=== PATIENT | female | born 1935 | race Two or more races ===

== ENCOUNTER 2020-10-10 02:39 | Inpatient (IN) | payer MEDICAID ==
[~2020-10-10] VITALS: Ht 160 cm; Wt 71.0 kg
[~2020-10-10 02:39] MED LIST: ALBU18 IN; ALEN1TAB32 PO; AMLO5CAP PO; BECL0.07 IN; GABA300T3 PO; HYDR25TA4 PO; METF-916 PO; OMEP20TA44 PO; OYST500T48 OR; RANI-226 PO; TAM150SU PO
[2020-10-10] MEDS ORDERED: SODIUM CHLORIDE 0.9% 1,000 ML IVB ONE (03:15)
[2020-10-10 04:36] LABS: Basophils # (auto) 0 10 ^3/uL (0-0.2); Basophils % (auto) 0.3 % (0.0-2.0); Eosinophils # (auto) 0.1 10 ^3/uL (0-0.8); Hematocrit 38.4 % (36.0-46.0); Hemoglobin 12.3 g/dL (12.2-16.2); Lymphocytes # (auto) 1.2 10 ^3/uL (0.4-5.4); Lymphocytes % (auto) 12.2 % (10.0-50.0); Mean Corpuscular Hemoglobin 29.2 pg (28.0-32.0); Mean Corpuscular Volume 91.3 fL (80.0-100.0); Monocytes # (auto) 0.6 10 ^3/uL (0-1.3); Monocytes % (auto) 6.6 % (0.0-12.0); Neutrophils # (auto) 7.6 10 ^3/uL (1.6-8.6); Neutrophils % (auto) 79.9 % (37.0-80.0); Platelet Count (auto) 153 10^3/uL (140-450); Red Cell Distribution Width 13.8 % (11.8-14.3); White Blood Cell 9.5 10^3/uL (4.4-10.8)
[2020-10-10 04:52] LABS: Urine Bacteria NONE SEEN /hpf (None Seen); Urine Blood TRACE /uL (Negative); Urine Hyaline Cast MOD /lpf (0 - 2); Urine Mucus FEW (None Seen); Urine Specific Gravity 1.019 (1.001-1.035); Urine WBC 45 /hpf (0 - 5)
[2020-10-10 04:54] LABS: Calcium 8.6 mg/dL (8.5-10.1); Potassium 4.2 mmol/L (3.5-5.1)
[2020-10-10 05:00] LABS: Albumin 3.5 g/dL (3.4-5.0); Bilirubin, Total 0.4 mg/dL (0.2-1.0); Total Protein 6.6 g/dL (6.4-8.2)
[2020-10-10] MEDS ORDERED: PANTOPRAZOLE 40 MG TAB PO ONE (05:00)
[2020-10-10] MEDS ORDERED: ONDANSETRON ODT 4 MG TAB PO ONE (05:00)
[2020-10-10] MEDS ORDERED: NITROGLYCERIN 0.4 MG SL TAB SL PRN (07:45)
[2020-10-10] MEDS ORDERED: ONDANSETRON HCL 4 MG/2 ML VIAL IV PRN (07:45)
[2020-10-10] MEDS: SODIUM CHLORIDE 0.9% 1,000 ML IV SCH ×2 (07:45→11:37)
[2020-10-10] MEDS ORDERED: DOCUSATE SOD 100 MG CAP PO PRN (07:45)
[2020-10-10] MEDS ORDERED: ACETAMINOPHEN 325 MG TAB PO PRN (07:45)
[2020-10-10] MEDS ORDERED: MORPHINE SULF INJ 2 MG/ML SYRINGE 1ML IV PRN (07:45)
[2020-10-10] MEDS ORDERED: HYDROcodone-ACET 5/325MG TAB PO PRN (07:45)
[2020-10-10 09:42] LABS: Cholesterol 197 mg/dL (< 200); HDL Cholesterol 52 mg/dL (40-59); LDL Cholesterol 112 mg/dL (< 100); Triglycerides 261 mg/dL (< 150)
[2020-10-10] MEDS: PANTOPRAZOLE 40 MG/10 ML VIAL INJ IV SCH (10:10)
[2020-10-10] MEDS: ENOXAPARIN SOD 40 MG/0.4 ML SYRINGE SC SCH (10:10)
[2020-10-10 11:30] VITALS: BP 110/76
[2020-10-10] MEDS ORDERED: DEXTROSE (50%) 50ML SYRG IV PRN (13:15)
[2020-10-10 14:30] VITALS: BP 107/63
[2020-10-10] MEDS ORDERED: GASTROGRAFIN 120 ML SOL ONE (15:40)
[2020-10-10] MEDS: InsuLIN REG 1unit/0.01ml Soln (100units/ml) SC SCH (17:29)
[2020-10-10] MEDS: ACCU-CHEK COMFORT CURVE STRIP VI SCH (17:30)
[2020-10-10 21:30] VITALS: BP 125/44
[2020-10-11] MEDS: ACCU-CHEK COMFORT CURVE STRIP VI SCH ×5 (00:11→23:43)
[2020-10-11] MEDS ORDERED: INFLUENZA QUAD 2020-2021 0.5 ML SYRG IM ONE (00:15)
[2020-10-11 05:34] LABS: Basophils # (auto) 0 10 ^3/uL (0-0.2); Basophils % (auto) 0.3 % (0.0-2.0); Eosinophils # (auto) 0.1 10 ^3/uL (0-0.8); Eosinophils % (auto) 1.2 % (0.0-7.0); Hematocrit 36.4 % (36.0-46.0); Hemoglobin 11.5 g/dL (12.2-16.2); Lymphocytes # (auto) 1.6 10 ^3/uL (0.4-5.4); Lymphocytes % (auto) 22.2 % (10.0-50.0); Mean Corpuscular Hemoglobin 29.2 pg (28.0-32.0); Mean Corpuscular Hgb Conc. 31.6 g/dL (32.0-36.0); Mean Corpuscular Volume 92.6 fL (80.0-100.0); Monocytes # (auto) 0.6 10 ^3/uL (0-1.3); Monocytes % (auto) 8.4 % (0.0-12.0); Neutrophils # (auto) 4.9 10 ^3/uL (1.6-8.6); Neutrophils % (auto) 67.9 % (37.0-80.0); Platelet Count (auto) 133 10^3/uL (140-450); Red Blood Cells 3.93 10^6/uL (4.0-5.20); Red Cell Distribution Width 14.3 % (11.8-14.3); White Blood Cell 7.2 10^3/uL (4.4-10.8)
[2020-10-11 05:35] VITALS: BP 155/70
[2020-10-11] MEDS: InsuLIN REG 1unit/0.01ml Soln (100units/ml) SC SCH ×5 (05:42→23:42)
[2020-10-11 05:52] LABS: Potassium 4.3 mmol/L (3.5-5.1)
[2020-10-11 05:58] LABS: BUN/Creatinine Ratio 25.9; Calcium 8.2 mg/dL (8.5-10.1)
[2020-10-11 06:45] VITALS: BP 127/66
[2020-10-11 09:07] VITALS: BP 135/59
[2020-10-11] MEDS: PANTOPRAZOLE 40 MG/10 ML VIAL INJ IV SCH (09:31)
[2020-10-11] MEDS: MORPHINE SULFATE 4 MG/ML SYR/VIAL IV PRN ×2 (09:31→19:56)
[2020-10-11] MEDS: ENOXAPARIN SOD 40 MG/0.4 ML SYRINGE SC SCH (09:33)
[2020-10-11 12:18] VITALS: BP 137/52
[2020-10-11 16:18] VITALS: BP 154/86
[2020-10-11] MEDS: SODIUM CHLORIDE 0.9% 1,000 ML IV SCH (17:05)
[2020-10-11] MEDS ORDERED: levoFLOXacin 750MG 150 ML IV ONE (20:30)
[2020-10-11 22:00] VITALS: BP 132/52
[2020-10-12 05:00] VITALS: BP 137/59
[2020-10-12] MEDS: InsuLIN REG 1unit/0.01ml Soln (100units/ml) SC SCH ×4 (05:20→23:29)
[2020-10-12] MEDS: ACCU-CHEK COMFORT CURVE STRIP VI SCH ×4 (05:21→23:29)
[2020-10-12 06:30] LABS: Basophils # (auto) 0 10 ^3/uL (0-0.2); Basophils % (auto) 0.3 % (0.0-2.0); Eosinophils # (auto) 0 10 ^3/uL (0-0.8); Eosinophils % (auto) 0.6 % (0.0-7.0); Hemoglobin 11.1 g/dL (12.2-16.2); Lymphocytes % (auto) 15.8 % (10.0-50.0); Mean Corpuscular Hemoglobin 29.8 pg (28.0-32.0); Mean Corpuscular Hgb Conc. 31.6 g/dL (32.0-36.0); Mean Corpuscular Volume 94.3 fL (80.0-100.0); Monocytes # (auto) 0.3 10 ^3/uL (0-1.3); Monocytes % (auto) 5.3 % (0.0-12.0); Neutrophils # (auto) 4.8 10 ^3/uL (1.6-8.6); Nucleated Red Blood Cells % 0.1 %; Platelet Count (auto) 120 10^3/uL (140-450); Red Blood Cells 3.71 10^6/uL (4.0-5.20); White Blood Cell 6.2 10^3/uL (4.4-10.8)
[2020-10-12 06:46] LABS: Potassium 4.5 mmol/L (3.5-5.1)
[2020-10-12 07:13] LABS: BUN/Creatinine Ratio 35.8; Calcium 8.3 mg/dL (8.5-10.1)
[2020-10-12] MEDS: PANTOPRAZOLE 40 MG/10 ML VIAL INJ IV SCH (08:42)
[2020-10-12] MEDS: ENOXAPARIN SOD 40 MG/0.4 ML SYRINGE SC SCH (08:42)
[2020-10-12 08:43] VITALS: BP 142/67
[2020-10-12] MEDS: SODIUM CHLORIDE 0.9% 1,000 ML IV SCH (09:45)
[2020-10-12 13:00] VITALS: BP 139/57
[2020-10-12] MEDS ORDERED: BENA40TA7 PO (15:26)
[2020-10-12] MEDS ORDERED: ESCI10TA PO (15:26)
[2020-10-12] MEDS ORDERED: AMBR10TA4 PO (15:26)
[2020-10-12] MEDS ORDERED: RIOC1TAB7 PO (15:26)
[2020-10-12] MEDS ORDERED: FURO20TA3 PO (15:26)
[2020-10-12 16:30] VITALS: BP 161/72
[2020-10-12 22:00] VITALS: BP 162/85
[2020-10-13] MEDS: SODIUM CHLORIDE 0.9% 1,000 ML IV SCH (02:25)
[2020-10-13 05:00] VITALS: BP 156/104
[2020-10-13] MEDS: ACCU-CHEK COMFORT CURVE STRIP VI SCH ×2 (06:00→12:19)
[2020-10-13] MEDS: InsuLIN REG 1unit/0.01ml Soln (100units/ml) SC SCH ×2 (06:00→12:00)
[2020-10-13 06:24] LABS: Basophils # (auto) 0 10 ^3/uL (0-0.2); Basophils % (auto) 0.3 % (0.0-2.0); Eosinophils # (auto) 0 10 ^3/uL (0-0.8); Eosinophils % (auto) 0.7 % (0.0-7.0); Hemoglobin 11.4 g/dL (12.2-16.2); Lymphocytes # (auto) 1.2 10 ^3/uL (0.4-5.4); Lymphocytes % (auto) 16.7 % (10.0-50.0); Mean Corpuscular Hemoglobin 29.9 pg (28.0-32.0); Mean Corpuscular Hgb Conc. 32.6 g/dL (32.0-36.0); Mean Corpuscular Volume 91.5 fL (80.0-100.0); Monocytes # (auto) 0.6 10 ^3/uL (0-1.3); Neutrophils # (auto) 5.3 10 ^3/uL (1.6-8.6); Neutrophils % (auto) 74.3 % (37.0-80.0); Nucleated Red Blood Cells % 0.1 %; Platelet Count (auto) 128 10^3/uL (140-450); Red Blood Cells 3.83 10^6/uL (4.0-5.20); Red Cell Distribution Width 13.5 % (11.8-14.3); White Blood Cell 7.1 10^3/uL (4.4-10.8)
[2020-10-13 09:00] VITALS: BP 161/81
[2020-10-13] MEDS ORDERED: hydrALAZINE HCL 20 MG/ML VL IV PRN (09:15)
[2020-10-13] MEDS: PANTOPRAZOLE 40 MG/10 ML VIAL INJ IV SCH (10:31)
[2020-10-13] MEDS: ENOXAPARIN SOD 40 MG/0.4 ML SYRINGE SC SCH (10:31)
[2020-10-13 12:49] VITALS: BP 151/74
[2020-10-13] MEDS ORDERED: SENN-58 PO (13:30)
[2020-10-13 13:51] VITALS: BP 151/74
[2020-10-13] MEDS ORDERED: INFLUENZA QUAD 2020-2021 0.5 ML SYRG IM ONE (14:02)
[2020-10-13] MEDS ORDERED: levoFLOXacin 500MG 100 ML IV SCH (21:00)
== END 2020-10-13 15:00 | disposition home or self-care (01) | DRG 247 ==
LOC: ER 02:39 → EDBD 02:39 → TELE 02:40 → ER 10:51 → TELE-CENTR 15:32
PROVIDERS: ADMIT Nurse Practitioner Family; ATTEND Internal Medicine Pulmonary Disease
DX: K56.600 Partial intestinal obstruction, unspecified as to cause (principal); K55.9 Vascular disorder of intestine, unspecified; N17.9 Acute kidney failure, unspecified; R18.8 Other ascites; E11.22 Type 2 diabetes mellitus with diabetic chronic kidney disease; K44.9 Diaphragmatic hernia without obstruction or gangrene; M19.90 Unspecified osteoarthritis, unspecified site; E78.5 Hyperlipidemia, unspecified; I70.0 Atherosclerosis of aorta; K21.9 Gastro-esophageal reflux disease without esophagitis; J45.909 Unspecified asthma, uncomplicated; J98.11 Atelectasis; K40.90 Unilateral inguinal hernia, without obstruction or gangrene, not specified as recurrent; M51.36 Other intervertebral disc degeneration, lumbar region; N18.9 Chronic kidney disease, unspecified; I12.9 Hypertensive chronic kidney disease with stage 1 through stage 4 chronic kidney disease, or unspecified chronic kidney disease; Z82.49 Family history of ischemic heart disease and other diseases of the circulatory system; Z82.5 Family history of asthma and other chronic lower respiratory diseases; Z88.8 Allergy status to other drugs, medicaments and biological substances; Z90.49 Acquired absence of other specified parts of digestive tract; Z79.84 Long term (current) use of oral hypoglycemic drugs
CPT/HCPCS: 36415; 71045; 74176; 74250; 80048; 80053; 80061; 81001; 82150; 82565; 82962; 83690; 85025; 96372; 96374; 99291; C9113; G0378; Q0162

== ENCOUNTER 2022-11-07 04:13 | Inpatient (IN) | payer MEDICAID ==
[~2022-11-07] VITALS: Ht 160 cm; Wt 83.4 kg
[~2022-11-07 04:13] MED LIST changes: -ALEN1TAB32 PO; +ALEN70TA74 PO; +AMBR10TA4 PO; +BENA40TA8 PO; +ESCI10TA PO; +FURO20TA3 PO; +RIOC1TAB14 PO; +SENN-58 PO
[2022-11-07 05:22] LABS: Urine Blood TRACE /uL (Negative); Urine Specific Gravity 1.006 (1.001-1.035)
[2022-11-07 05:22] LABS: Basophils # (auto) 0 10 ^3/uL (0-0.2); Basophils % (auto) 0.6 % (0.0-2.0); Eosinophils # (auto) 0.2 10 ^3/uL (0-0.8); Eosinophils % (auto) 3.3 % (0.0-7.0); Hematocrit 32.3 % (36.0-46.0); Hemoglobin 10.2 g/dL (12.2-16.2); Lymphocytes # (auto) 1.2 10 ^3/uL (0.4-5.4); Lymphocytes % (auto) 25.7 % (10.0-50.0); Mean Corpuscular Hemoglobin 29.3 pg (28.0-32.0); Mean Corpuscular Hgb Conc. 31.6 g/dL (32.0-36.0); Mean Corpuscular Volume 92.6 fL (80.0-100.0); Monocytes # (auto) 0.5 10 ^3/uL (0-1.3); Monocytes % (auto) 9.4 % (0.0-12.0); Neutrophils # (auto) 2.9 10 ^3/uL (1.6-8.6); Nucleated Red Blood Cells % 0.1 %; Red Blood Cells 3.48 10^6/uL (4.0-5.20); Red Cell Distribution Width 14.1 % (11.8-14.3); White Blood Cell 4.8 10^3/uL (4.4-10.8)
[2022-11-07 05:35] LABS: INR 0.97 (0.9-1.15)
[2022-11-07 05:40] LABS: Albumin 3.7 g/dL (3.4-5.0); BUN/Creatinine Ratio 15.8; Magnesium 1.7 mg/dL (1.6-2.6); Potassium 4.4 mmol/L (3.5-5.1)
[2022-11-07 05:42] LABS: Bilirubin, Total 0.4 mg/dL (0.2-1.0); Total Protein 7.3 g/dL (6.4-8.2)
[2022-11-07] MEDS ORDERED: AZITHROMYCIN 500MG/ 250ML 250 ML IV ONE (09:15)
[2022-11-07] MEDS ORDERED: cefTRIAXone 1GM/50ML D5W 50 ML IV ONE (09:15)
[2022-11-07] MEDS ORDERED: ALBUTEROL SULF 2.5 MG/0.5ML(0.5%) NEB SOLN NEB ONE (09:45)
[2022-11-07] MEDS ORDERED: DexAMETHasone SOD PHOS 10MG/1ML VIAL INJ IV ONE (09:45)
[2022-11-07] MEDS ORDERED: IPRATROPIUM BROM 0.5 MG/2.5ML INH SOL NEB ONE (09:45)
[2022-11-07] MEDS ORDERED: FURO1TAB33 PO (09:53)
[2022-11-07] MEDS ORDERED: AMLO-483 PO (09:53)
[2022-11-07] MEDS ORDERED: BENA40TA PO (09:53)
[2022-11-07] MEDS ORDERED: ALBUTEROL MEDNEB 2.5 mg/3ml NEB ONE ×2 (10:18→18:19)
[2022-11-07] MEDS ORDERED: DEXTROSE (50%) 50ML SYRG IV PRN (10:45)
[2022-11-07] MEDS ORDERED: MORPHINE SULFATE INJ 2 MG/ml SYRG IV PRN ×2 (10:45)
[2022-11-07] MEDS ORDERED: NITROGLYCERIN 0.4 MG SL TAB SL PRN (10:45)
[2022-11-07] MEDS ORDERED: hydrALAZINE HCL 20 MG/ML VL IV PRN (10:45)
[2022-11-07] MEDS ORDERED: ACETAMINOPHEN 325 MG TAB PO PRN (10:45)
[2022-11-07] MEDS ORDERED: ALBUTEROL SULF 2.5 MG/0.5ML(0.5%) NEB SOLN NEB PRN (11:00)
[2022-11-07] MEDS ORDERED: IPRATROPIUM BROM 0.5 MG/2.5ML INH SOL NEB PRN (11:00)
[2022-11-07] MEDS: SODIUM CHLORIDE 0.9% 1,000 ML IV SCH (11:19)
[2022-11-07] MEDS: ACCU-CHEK COMFORT CURVE STRIP VI SCH ×3 (11:26→22:20)
[2022-11-07] MEDS: InsuLIN REG 1unit/0.01ml Soln (100units/ml) SC SCH ×3 (11:26→22:00)
[2022-11-07 11:35] LABS: Cholesterol 193 mg/dL (< 200)
[2022-11-07 11:38] LABS: HDL Cholesterol 82 mg/dL (40-59); LDL Cholesterol 99 mg/dL (< 100); Triglycerides 116 mg/dL (< 150)
[2022-11-07] MEDS: IPRATROPIUM BROM 0.5 MG/2.5ML INH SOL NEB SCH ×2 (12:00→18:19)
[2022-11-07] MEDS: ALBUTEROL SULF 2.5 MG/0.5ML(0.5%) NEB SOLN NEB SCH ×2 (12:00→18:19)
[2022-11-07 14:09] VITALS: BP 153/48
[2022-11-07] MEDS: FUROSEMIDE 20 MG TAB PO SCH (17:30)
[2022-11-07 22:00] VITALS: BP 167/66
[2022-11-07] MEDS: GABAPENTIN 300 MG CAP PO SCH (22:48)
[2022-11-07] MEDS: HYDROcodone-ACET 5/325MG TAB PO PRN (23:08)
[2022-11-08 00:10] VITALS: BP 140/60
[2022-11-08] MEDS: SODIUM CHLORIDE 0.9% 1,000 ML IV SCH (03:40)
[2022-11-08 05:00] VITALS: BP 146/58
[2022-11-08] MEDS ORDERED: ALBUTEROL MEDNEB 2.5 mg/3ml NEB ONE (06:01)
[2022-11-08] MEDS: FUROSEMIDE 20 MG TAB PO SCH (06:06)
[2022-11-08] MEDS: ACCU-CHEK COMFORT CURVE STRIP VI SCH ×2 (06:06→11:36)
[2022-11-08] MEDS: InsuLIN REG 1unit/0.01ml Soln (100units/ml) SC SCH ×2 (06:06→11:30)
[2022-11-08] MEDS: IPRATROPIUM BROM 0.5 MG/2.5ML INH SOL NEB SCH ×3 (06:29→18:43)
[2022-11-08] MEDS: ALBUTEROL SULF 2.5 MG/0.5ML(0.5%) NEB SOLN NEB SCH ×3 (06:29→18:43)
[2022-11-08 07:17] LABS: Basophils # (auto) 0 10 ^3/uL (0-0.2); Basophils % (auto) 0.5 % (0.0-2.0); Eosinophils # (auto) 0.1 10 ^3/uL (0-0.8); Eosinophils % (auto) 2.6 % (0.0-7.0); Hematocrit 31.1 % (36.0-46.0); Hemoglobin 10.1 g/dL (12.2-16.2); Lymphocytes # (auto) 1.3 10 ^3/uL (0.4-5.4); Lymphocytes % (auto) 27.3 % (10.0-50.0); Mean Corpuscular Hemoglobin 29.9 pg (28.0-32.0); Mean Corpuscular Hgb Conc. 32.4 g/dL (32.0-36.0); Mean Corpuscular Volume 92.2 fL (80.0-100.0); Monocytes # (auto) 0.6 10 ^3/uL (0-1.3); Monocytes % (auto) 12.3 % (0.0-12.0); Neutrophils # (auto) 2.8 10 ^3/uL (1.6-8.6); Neutrophils % (auto) 57.3 % (37.0-80.0); Red Blood Cells 3.38 10^6/uL (4.0-5.20); Red Cell Distribution Width 14.3 % (11.8-14.3); White Blood Cell 4.9 10^3/uL (4.4-10.8)
[2022-11-08 07:34] LABS: Albumin 3.4 g/dL (3.4-5.0); Calcium 8.5 mg/dL (8.5-10.1); Potassium 4.4 mmol/L (3.5-5.1)
[2022-11-08 07:39] LABS: BUN/Creatinine Ratio 13.8; Bilirubin, Total 0.6 mg/dL (0.2-1.0); Total Protein 6.4 g/dL (6.4-8.2)
[2022-11-08 08:03] VITALS: BP_SYST 130; BP_SYST 134; BP_DIAS 46; BP_DIAS 89
[2022-11-08] MEDS: GABAPENTIN 300 MG CAP PO SCH (09:41)
[2022-11-08] MEDS: ENOXAPARIN SOD 40 MG/0.4 ML SYRINGE SC SCH (09:42)
[2022-11-08] MEDS ORDERED: HCTZ 25 MG TAB PO SCH (10:00)
[2022-11-08] MEDS: ESCITALOPRAM 10 MG TABLETS PO SCH (10:00)
[2022-11-08] MEDS ORDERED: BENAZEPRIL HCL 10 MG TAB PO SCH ×2 (10:00)
[2022-11-08] MEDS ORDERED: amLODIPine BESYLATE 5 MG TAB PO SCH (10:00)
[2022-11-08 12:46] VITALS: BP 108/51
[2022-11-08] MEDS ORDERED: cefTRIAXone 1GM/50ML D5W 50 ML IV ONE (14:00)
[2022-11-08] MEDS ORDERED: AZITHROMYCIN 500MG/ 250ML 250 ML IV ONE (14:00)
[2022-11-08] MEDS: ADEMPAS 2 MG PO SCH ×2 (16:56→21:34)
[2022-11-08 17:01] VITALS: BP 133/63
[2022-11-08 22:00] VITALS: BP 128/49
[2022-11-09] MEDS: ALPRAZolam 0.25 MG TAB PO PRN (02:25)
[2022-11-09] MEDS: HYDROcodone-ACET 5/325MG TAB PO PRN (02:29)
[2022-11-09 05:00] VITALS: BP 131/41
[2022-11-09] MEDS: ADEMPAS 2 MG PO SCH ×3 (06:21→21:45)
[2022-11-09] MEDS: FUROSEMIDE 20 MG TAB PO SCH (06:23)
[2022-11-09 06:58] LABS: Basophils # (auto) 0 10 ^3/uL (0-0.2); Basophils % (auto) 0.5 % (0.0-2.0); Eosinophils # (auto) 0.1 10 ^3/uL (0-0.8); Eosinophils % (auto) 2.5 % (0.0-7.0); Hemoglobin 10.4 g/dL (12.2-16.2); Lymphocytes # (auto) 1.6 10 ^3/uL (0.4-5.4); Lymphocytes % (auto) 28.3 % (10.0-50.0); Mean Corpuscular Hemoglobin 30.5 pg (28.0-32.0); Mean Corpuscular Hgb Conc. 33.6 g/dL (32.0-36.0); Mean Corpuscular Volume 90.9 fL (80.0-100.0); Monocytes # (auto) 0.7 10 ^3/uL (0-1.3); Monocytes % (auto) 11.5 % (0.0-12.0); Neutrophils # (auto) 3.3 10 ^3/uL (1.6-8.6); Neutrophils % (auto) 57.2 % (37.0-80.0); Nucleated Red Blood Cells % 0.1 %; Red Blood Cells 3.41 10^6/uL (4.0-5.20); Red Cell Distribution Width 14.2 % (11.8-14.3); White Blood Cell 5.8 10^3/uL (4.4-10.8)
[2022-11-09] MEDS: ALBUTEROL SULF 2.5 MG/0.5ML(0.5%) NEB SOLN NEB SCH ×3 (07:25→19:58)
[2022-11-09] MEDS: IPRATROPIUM BROM 0.5 MG/2.5ML INH SOL NEB SCH ×3 (07:25→19:58)
[2022-11-09 07:40] LABS: Potassium 4.1 mmol/L (3.5-5.1)
[2022-11-09 07:47] LABS: BUN/Creatinine Ratio 19.7; Calcium 8.7 mg/dL (8.5-10.1)
[2022-11-09 08:25] VITALS: BP 112/44
[2022-11-09] MEDS: cefTRIAXone 1GM/50ML D5W 50 ML IV SCH (09:11)
[2022-11-09] MEDS: AZITHROMYCIN 500MG/ 250ML 250 ML IV SCH (09:12)
[2022-11-09] MEDS: ESCITALOPRAM 10 MG TABLETS PO SCH (09:13)
[2022-11-09] MEDS: FAMOTIDINE 20 MG TAB PO SCH (09:13)
[2022-11-09] MEDS: ENOXAPARIN SOD 40 MG/0.4 ML SYRINGE SC SCH (09:13)
[2022-11-09] MEDS: AMBRISENTAN 10 MG TAB PO SCH (09:14)
[2022-11-09] MEDS ORDERED: BENAZEPRIL HCL 10 MG TAB PO SCH ×2 (10:00)
[2022-11-09 12:25] VITALS: BP 97/33
[2022-11-09 16:20] VITALS: BP 113/48
[2022-11-09 22:00] VITALS: BP 120/48
[2022-11-10 05:00] VITALS: BP 136/50
[2022-11-10] MEDS: ADEMPAS 2 MG PO SCH ×3 (06:21→21:16)
[2022-11-10] MEDS: FUROSEMIDE 20 MG TAB PO SCH (06:22)
[2022-11-10] MEDS: HYDROcodone-ACET 5/325MG TAB PO PRN (06:26)
[2022-11-10 06:54] LABS: BUN/Creatinine Ratio 24.7; Calcium 8.7 mg/dL (8.5-10.1); Potassium 4.5 mmol/L (3.5-5.1)
[2022-11-10 08:25] VITALS: BP 115/49
[2022-11-10] MEDS: AZITHROMYCIN 500MG/ 250ML 250 ML IV SCH (09:58)
[2022-11-10] MEDS: cefTRIAXone 1GM/50ML D5W 50 ML IV SCH (09:58)
[2022-11-10] MEDS: ESCITALOPRAM 10 MG TABLETS PO SCH (09:58)
[2022-11-10] MEDS: ENOXAPARIN SOD 40 MG/0.4 ML SYRINGE SC SCH (09:59)
[2022-11-10] MEDS: AMBRISENTAN 10 MG TAB PO SCH (10:00)
[2022-11-10 12:25] VITALS: BP 131/45
[2022-11-10 16:15] VITALS: BP 123/52
[2022-11-10] MEDS: IPRATROPIUM BROM 0.5 MG/2.5ML INH SOL NEB SCH (18:37)
[2022-11-10] MEDS: ALBUTEROL SULF 2.5 MG/0.5ML(0.5%) NEB SOLN NEB SCH (18:37)
[2022-11-10 21:50] VITALS: BP 104/32
[2022-11-11] MEDS: ALPRAZolam 0.25 MG TAB PO PRN (01:21)
[2022-11-11 03:49] VITALS: BP 104/32
[2022-11-11 04:53] VITALS: BP 129/39
[2022-11-11] MEDS: ADEMPAS 2 MG PO SCH ×3 (06:05→22:06)
[2022-11-11] MEDS: IPRATROPIUM BROM 0.5 MG/2.5ML INH SOL NEB SCH ×3 (06:24→18:07)
[2022-11-11] MEDS: ALBUTEROL SULF 2.5 MG/0.5ML(0.5%) NEB SOLN NEB SCH ×3 (06:24→18:07)
[2022-11-11 06:27] LABS: Potassium 4.6 mmol/L (3.5-5.1)
[2022-11-11 06:31] LABS: BUN/Creatinine Ratio 35.9; Calcium 8.1 mg/dL (8.5-10.1)
[2022-11-11] MEDS: FUROSEMIDE 20 MG TAB PO SCH (06:31)
[2022-11-11 09:05] VITALS: BP 118/48
[2022-11-11] MEDS: cefTRIAXone 1GM/50ML D5W 50 ML IV SCH (09:17)
[2022-11-11] MEDS: ENOXAPARIN SOD 40 MG/0.4 ML SYRINGE SC SCH (09:18)
[2022-11-11] MEDS: ESCITALOPRAM 10 MG TABLETS PO SCH (09:18)
[2022-11-11] MEDS: FAMOTIDINE 20 MG TAB PO SCH (09:18)
[2022-11-11] MEDS: AMBRISENTAN 10 MG TAB PO SCH (09:18)
[2022-11-11] MEDS: AZITHROMYCIN 250 MG TAB PO SCH (09:18)
[2022-11-11 12:30] VITALS: BP 112/52
[2022-11-11 17:00] VITALS: BP 126/52
[2022-11-12 05:00] VITALS: BP 130/40
[2022-11-12] MEDS: FUROSEMIDE 20 MG TAB PO SCH (05:47)
[2022-11-12] MEDS: ADEMPAS 2 MG PO SCH ×3 (05:47→20:50)
[2022-11-12] MEDS: ALBUTEROL SULF 2.5 MG/0.5ML(0.5%) NEB SOLN NEB SCH ×3 (07:30→19:06)
[2022-11-12] MEDS: IPRATROPIUM BROM 0.5 MG/2.5ML INH SOL NEB SCH ×3 (07:30→19:07)
[2022-11-12 08:00] VITALS: BP 125/48
[2022-11-12 08:30] VITALS: BP 125/48
[2022-11-12] MEDS: ENOXAPARIN SOD 40 MG/0.4 ML SYRINGE SC SCH (09:42)
[2022-11-12] MEDS: cefTRIAXone 1GM/50ML D5W 50 ML IV SCH (09:42)
[2022-11-12] MEDS: AZITHROMYCIN 250 MG TAB PO SCH (09:42)
[2022-11-12] MEDS: ESCITALOPRAM 10 MG TABLETS PO SCH (09:43)
[2022-11-12] MEDS: AMBRISENTAN 10 MG TAB PO SCH (09:43)
[2022-11-12] MEDS: HYDROcodone-ACET 5/325MG TAB PO PRN (10:41)
[2022-11-12 13:11] VITALS: BP 105/40
[2022-11-12 16:28] VITALS: BP 103/40
[2022-11-12] MEDS: ALPRAZolam 0.25 MG TAB PO PRN (19:25)
[2022-11-12] MEDS: AMOXICILLIN/CLAVUL 875 MG TAB PO SCH (20:50)
[2022-11-12 22:00] VITALS: BP 108/44
[2022-11-13 05:00] VITALS: BP 137/57
[2022-11-13] MEDS: FUROSEMIDE 20 MG TAB PO SCH (05:47)
[2022-11-13] MEDS: ADEMPAS 2 MG PO SCH ×2 (05:48→13:34)
[2022-11-13] MEDS: IPRATROPIUM BROM 0.5 MG/2.5ML INH SOL NEB SCH ×2 (06:57→11:52)
[2022-11-13] MEDS: ALBUTEROL SULF 2.5 MG/0.5ML(0.5%) NEB SOLN NEB SCH ×2 (06:58→11:52)
[2022-11-13 08:00] VITALS: BP 117/45
[2022-11-13] MEDS: AZITHROMYCIN 250 MG TAB PO SCH (09:34)
[2022-11-13] MEDS: ENOXAPARIN SOD 40 MG/0.4 ML SYRINGE SC SCH (09:34)
[2022-11-13] MEDS: AMOXICILLIN/CLAVUL 875 MG TAB PO SCH (09:34)
[2022-11-13] MEDS: AMBRISENTAN 10 MG TAB PO SCH (09:34)
[2022-11-13] MEDS: ESCITALOPRAM 10 MG TABLETS PO SCH (09:34)
[2022-11-13] MEDS: FAMOTIDINE 20 MG TAB PO SCH (09:35)
[2022-11-13 12:00] VITALS: BP 106/32
[2022-11-13] MEDS: HYDROcodone-ACET 5/325MG TAB PO PRN (13:36)
[2022-11-13] MEDS ORDERED: AZIT250T9 PO (15:03)
[2022-11-13] MEDS ORDERED: AMOX-277 PO (15:04)
[2022-11-13 15:13] VITALS: BP 106/32
== END 2022-11-13 16:00 | disposition home health service (06) | DRG 137 ==
LOC: ER 04:13 → EDBD 04:13 → TELE 10:43 → TELE-WESTW 21:35
PROVIDERS: ADMIT Registered Nurse; ATTEND Student in an Organized Health Care Education/Training Program
DX: J15.6 Pneumonia due to other Gram-negative bacteria (principal); J96.21 Acute and chronic respiratory failure with hypoxia; I27.20 Pulmonary hypertension, unspecified; I13.0 Hypertensive heart and chronic kidney disease with heart failure and stage 1 through stage 4 chronic kidney disease, or unspecified chronic kidney disease; I50.9 Heart failure, unspecified; E11.22 Type 2 diabetes mellitus with diabetic chronic kidney disease; D64.9 Anemia, unspecified; J44.0 Chronic obstructive pulmonary disease with (acute) lower respiratory infection; E66.9 Obesity, unspecified; E78.5 Hyperlipidemia, unspecified; F41.9 Anxiety disorder, unspecified; K21.9 Gastro-esophageal reflux disease without esophagitis; Z20.822 Contact with and (suspected) exposure to COVID-19; I95.1 Orthostatic hypotension; N18.9 Chronic kidney disease, unspecified; Z82.49 Family history of ischemic heart disease and other diseases of the circulatory system; Z82.5 Family history of asthma and other chronic lower respiratory diseases
CPT/HCPCS: 36415; 71045; 80048; 80053; 80061; 81001; 82962; 83036; 83735; 83880; 84443; 84484; 85025; 85379; 85610; 85730; 87040; 87426; 87804; 93005; 94640; 96365; 96366; 96368; 96375; 97110; 97116; 97163; 97530; G0378; J0696; J1100

== ENCOUNTER 2023-12-08 16:32 | Inpatient (IN) | payer MEDICAID ==
[~2023-12-08] VITALS: Ht 152.4 cm; Wt 81.6 kg
[~2023-12-08 16:32] MED LIST changes: +AMLO1CAP PO; +AMLO1TAB21 PO; -AMLO5CAP PO; +AMOX875T4 PO; +AZIT-43 PO; +BENA40TA PO; +BENA40TA70 PO; -BENA40TA8 PO; +FURO1TAB33 PO; +METF-1145 PO; -METF-916 PO; +OYST1TAB OR; -OYST500T48 OR
[2023-12-08] MEDS ORDERED: SODIUM CHLORIDE 0.9% 1,000 ML IV ONE (18:45)
[2023-12-08 20:15] LABS: Basophils # (auto) 0 10 ^3/uL (0-0.2); Eosinophils # (auto) 0.1 10 ^3/uL (0-0.8); Hemoglobin 8.6 g/dL (12.2-16.2); Mean Corpuscular Volume 81.8 fL (80.0-100.0); Monocytes # (auto) 1.2 10 ^3/uL (0-1.3); Neutrophils # (auto) 5.5 10 ^3/uL (1.6-8.6); Nucleated Red Blood Cells % 0.1 %
[2023-12-08 20:18] LABS: Basophils % (auto) 0.4 % (0.0-2.0); Eosinophils % (auto) 0.9 % (0.0-7.0); Hematocrit 27.6 % (36.0-46.0); Lymphocytes # (auto) 2.1 10 ^3/uL (0.4-5.4); Lymphocytes % (auto) 23.7 % (10.0-50.0); Mean Corpuscular Hemoglobin 25.6 pg (28.0-32.0); Mean Corpuscular Hgb Conc. 31.3 g/dL (32.0-36.0); Monocytes % (auto) 13.2 % (0.0-12.0); Neutrophils % (auto) 61.8 % (37.0-80.0); Red Blood Cells 3.38 10^6/uL (4.0-5.20); Red Cell Distribution Width 16.2 % (11.8-14.3); White Blood Cell 8.8 10^3/uL (4.4-10.8)
[2023-12-08 20:27] LABS: Chloride 88 mmol/L (98-107); Potassium 4.1 mmol/L (3.5-5.1); Sodium 128 mmol/L (136-145)
[2023-12-08 20:28] LABS: Anion Gap 6 (5-15); Carbon Dioxide 34 mmol/L (20-30)
[2023-12-08 20:31] LABS: INR 0.98 (0.9-1.15); Partial Thromboplastin Time 24.6 SEC (24.5-34.5); Prothrombin Time 10.3 sec (9.3-11.8)
[2023-12-08 20:33] LABS: BUN/Creatinine Ratio 28.3 (10.0-20.0); Blood Urea Nitrogen 43 mg/dL (9-23); Glucose 114 mg/dL (74-106)
[2023-12-08 20:53] LABS: Lipase 55 U/L (12-53)
[2023-12-08] MEDS ORDERED: ACETAMINOPHEN 325 MG TAB PO PRN (21:00)
[2023-12-08] MEDS ORDERED: DOCUSATE SOD 100 MG CAP PO PRN (21:00)
[2023-12-08] MEDS ORDERED: FLEET ENEMA(ADULT) 135 ML PR ONE (21:00)
[2023-12-08] MEDS ORDERED: ONDANSETRON HCL 4 MG/2 ML VIAL IV PRN (21:00)
[2023-12-08] MEDS ORDERED: MAALOX PLUS or MAALOX 30 ML PO PRN (21:00)
[2023-12-08 22:17] VITALS: PULSE 74; RESP 13; O2SAT 99
[2023-12-08] MEDS: SODIUM CHLORIDE 0.9% 1,000 ML IV SCH (22:40)
[2023-12-08] MEDS: LACTULOSE 20Gm/30ML SOLN PO SCH (22:50)
[2023-12-08 23:10] LABS: Urine Bacteria FEW /hpf (None Seen); Urine Blood Negative /uL (Negative); Urine Clarity Clear (Clear); Urine Color Yellow (Yellow); Urine Hyaline Cast MOD /lpf (0 - 2); Urine Protein, UAD Negative (Negative); Urine Specific Gravity 1.015 (1.001-1.035); Urine Urobilinogen Normal (Negative); Urine WBC 5 /hpf (0 - 5)
[2023-12-09] VITALS (7 sets, daily range): BP systolic 106–138; BP diastolic 44–57; PULSE 68–79; RESP 17–20; TEMP 98–98.5; O2SAT 94–100
[2023-12-09] MEDS: SODIUM CHLORIDE 0.9% 1,000 ML IV SCH ×2 (01:21→17:00)
[2023-12-09] MEDS: LACTULOSE 20Gm/30ML SOLN PO SCH ×4 (06:00→18:00)
[2023-12-09 07:01] LABS: Basophils # (auto) 0 10 ^3/uL (0-0.2); Eosinophils # (auto) 0.1 10 ^3/uL (0-0.8); Eosinophils % (auto) 1.2 % (0.0-7.0); Hemoglobin 7.8 g/dL (12.2-16.2); Lymphocytes # (auto) 1.7 10 ^3/uL (0.4-5.4); Monocytes # (auto) 0.8 10 ^3/uL (0-1.3); Nucleated Red Blood Cells % 0.1 %
[2023-12-09 07:04] LABS: Chloride 93 mmol/L (98-107); Potassium 4.7 mmol/L (3.5-5.1); Sodium 131 mmol/L (136-145)
[2023-12-09 07:05] LABS: Basophils % (auto) 0.3 % (0.0-2.0); Calcium 8.5 mg/dL (8.5-10.1); Hematocrit 24.9 % (36.0-46.0); Lymphocytes % (auto) 24.9 % (10.0-50.0); Mean Corpuscular Hemoglobin 25.7 pg (28.0-32.0); Mean Corpuscular Hgb Conc. 31.5 g/dL (32.0-36.0); Mean Corpuscular Volume 81.6 fL (80.0-100.0); Monocytes % (auto) 11.9 % (0.0-12.0); Neutrophils # (auto) 4.3 10 ^3/uL (1.6-8.6); Neutrophils % (auto) 61.7 % (37.0-80.0); Red Blood Cells 3.05 10^6/uL (4.0-5.20); Red Cell Distribution Width 15.7 % (11.8-14.3)
[2023-12-09 07:10] LABS: BUN/Creatinine Ratio 29.4 (10.0-20.0); Blood Urea Nitrogen 37 mg/dL (9-23); Glucose 79 mg/dL (74-106)
[2023-12-09 07:33] LABS: Anion Gap 4 (5-15); Carbon Dioxide 34 mmol/L (20-30)
[2023-12-10] VITALS (7 sets, daily range): BP systolic 110–149; BP diastolic 27–66; PULSE 63–84; RESP 17–20; TEMP 98–98.7; O2SAT 91–99
[2023-12-10] MEDS: LACTULOSE 20Gm/30ML SOLN PO SCH ×4 (00:26→18:29)
[2023-12-10] MEDS: SODIUM CHLORIDE 0.9% 1,000 ML IV SCH ×3 (06:46→23:00)
[2023-12-10] MEDS: BENAZEPRIL HCL 10 MG TAB PO SCH (12:30)
[2023-12-10] MEDS: FUROSEMIDE 20 MG TAB PO SCH (18:32)
[2023-12-11] MEDS: SODIUM CHLORIDE 0.9% 1,000 ML IV SCH (01:08)
[2023-12-11 05:00] VITALS: BP 159/63; PULSE 82; RESP 22; TEMP 98; O2SAT 97
[2023-12-11] MEDS: LACTULOSE 20Gm/30ML SOLN PO SCH ×3 (06:42→12:00)
[2023-12-11] MEDS: FUROSEMIDE 20 MG TAB PO SCH (06:43)
[2023-12-11 08:15] VITALS: BP 178/68; PULSE 93; RESP 20; TEMP 98.5; O2SAT 95
[2023-12-11] MEDS ORDERED: ADEMPAS 2 MG PO SCH (10:00)
[2023-12-11] MEDS ORDERED: amLODIPine BESYLATE 5 MG TAB PO SCH (10:00)
[2023-12-11] MEDS ORDERED: AMBRISENTAN 10 MG PO SCH (10:00)
[2023-12-11] MEDS: BENAZEPRIL HCL 10 MG TAB PO SCH (11:40)
[2023-12-11 12:05] VITALS: BP 129/57; PULSE 79; RESP 20; TEMP 97.9; O2SAT 98
[2023-12-11] MEDS ORDERED: LACT10PA2 PO (14:41)
[2023-12-11] MEDS ORDERED: POLY335015 PO (14:41)
[2023-12-11 16:10] VITALS: BP 134/42; PULSE 61; RESP 20; TEMP 98.4; O2SAT 96
== END 2023-12-11 17:20 | disposition home or self-care (01) | DRG 254 ==
LOC: ER 16:32 → EDBD 16:32 → OVERFLOW 20:58 → WEST WING 23:59
PROVIDERS: ADMIT Hospitalist; ATTEND Family Medicine
DX: K59.00 Constipation, unspecified (principal); N17.0 Acute kidney failure with tubular necrosis; R57.1 Hypovolemic shock; E87.1 Hypo-osmolality and hyponatremia; E11.22 Type 2 diabetes mellitus with diabetic chronic kidney disease; D64.9 Anemia, unspecified; E11.65 Type 2 diabetes mellitus with hyperglycemia; E66.01 Morbid (severe) obesity due to excess calories; E78.5 Hyperlipidemia, unspecified; J45.909 Unspecified asthma, uncomplicated; K52.9 Noninfective gastroenteritis and colitis, unspecified; N18.9 Chronic kidney disease, unspecified; K21.9 Gastro-esophageal reflux disease without esophagitis; I12.9 Hypertensive chronic kidney disease with stage 1 through stage 4 chronic kidney disease, or unspecified chronic kidney disease; I25.10 Atherosclerotic heart disease of native coronary artery without angina pectoris; I25.2 Old myocardial infarction; Z82.49 Family history of ischemic heart disease and other diseases of the circulatory system; Z82.5 Family history of asthma and other chronic lower respiratory diseases; Z88.5 Allergy status to narcotic agent; Z90.49 Acquired absence of other specified parts of digestive tract; Z68.31 Body mass index [BMI] 31.0-31.9, adult
CPT/HCPCS: 36415; 74176; 80048; 81001; 82962; 83605; 83690; 83880; 84484; 85025; 85379; 85610; 85730; 87040; 87081; 87086; 93970; G0378; J2405